=== PATIENT | male | born 1955 ===

== ENCOUNTER 2023-07-22 15:02 | Outpatient (RCR) | payer OTHER, SELFPAY | END 2023-07-23 23:59 | disposition home or self-care (01) | LOC: PRC 15:02 | PROVIDERS: PCP Internal Medicine Cardiovascular Disease; Visit Provider Student in an Organized Health Care Education/Training Program | DX: J44.9 Chronic obstructive pulmonary disease, unspecified (principal); Z51.89 Encounter for other specified aftercare | CPT/HCPCS: 94626 ==

== ENCOUNTER 2023-08-19 14:00 | Outpatient (RCR) | payer OTHER, SELFPAY | END 2023-08-23 23:59 | disposition home or self-care (01) | LOC: PRC 14:00 | PROVIDERS: PCP Internal Medicine Cardiovascular Disease; Visit Provider Student in an Organized Health Care Education/Training Program | DX: J44.9 Chronic obstructive pulmonary disease, unspecified (principal); Z51.89 Encounter for other specified aftercare | CPT/HCPCS: 94626 ==